=== PATIENT | female | born 1970 | race Two or more races ===

== ENCOUNTER → 2017-04-11 | Outpatient (CLI) | payer OTHER ==
[~2017-04-11] MED LIST: ALOG1TAB8 PO; GLYB5TAB3 PO; LISI5TAB7 PO; SIMV20TA3 PO
== END | disposition home or self-care (01) ==
LOC: CFH 12:53
PROVIDERS: ATTEND Nurse Practitioner Family
DX: R51 Headache (principal); R20.8 Other disturbances of skin sensation
CPT/HCPCS: 72050

== ENCOUNTER 2021-06-04 07:13 | Outpatient (CLI) | payer OTHER ==
[~2021-06-04 07:13] MED LIST changes: +SIMV20TA19 PO; -SIMV20TA3 PO
== END 2021-06-04 23:59 | disposition home or self-care (01) ==
LOC: CFH 07:13
PROVIDERS: ATTEND Nurse Practitioner Family
DX: Z12.31 Encounter for screening mammogram for malignant neoplasm of breast (principal)
CPT/HCPCS: 77063; 77067